=== PATIENT | male | born 1985 | race Caucasian/White ===

== ENCOUNTER → 2019-03-01 | Outpatient (CLI) | payer BC, SELFPAY ==
[2019-03-01 11:49] LABS: Hematocrit 48.1 % (40-54); Hemoglobin 16.9 g/dl (13.0-16.5); Mean Corp Hgb Conc 35.1 g/gl (32-36); Mean Corpuscular Hgb 30.5 pg (27.0-32.0); Mean Corpuscular Volume 86.7 fL (80-94); Mean Platelet Vol. 10.4 fl (6.2-12.0); Platelet Count 240 K/mm3 (150-450); RBC Distribution Width CV 12.6 % (11.6-14.6); RBC Distribution Width SD 39.7 fl (35.1-43.9); Red Blood Count 5.55 M/mm3 (4.6-6.2); White Blood Count 4.7 K/mm3 (4.4-11.0)
[2019-03-01 11:54] LABS: Scan Indicated on CBC? Y/N NO
[2019-03-01 12:05] LABS: Anion Gap 4 (5-15); Chloride 107 mmol/L (98-107); Potassium 3.8 mmol/L (3.5-5.1); Sodium Level 138 mmol/L (136-145)
[2019-03-01 12:14] LABS: Hemoglobin A1c 5.9 % (4.2-6.3)
[2019-03-15 11:16] LABS: ACHR Recep AB, Blocking 13 % (0-25); Acetylcholine Receptor Binding 0.06 nmol/L (0.00-0.24)
== END | disposition home or self-care (01) ==
PROVIDERS: Referring Provider Ophthalmology; Visit Provider Ophthalmology
DX: H53.2 Diplopia (principal)
CPT/HCPCS: 36415; 80051; 83036; 83519; 84238; 85027